=== PATIENT | female | born 2000 | race Two or more races ===

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

== ENCOUNTER 2021-04-21 17:54 | Emergency (ER) | payer MEDICAID ==
[~2021-04-21] VITALS: Ht 170.2 cm; Wt 95.3 kg
[2021-04-21 17:55] VITALS: BP 130/74
== END 2021-04-22 00:30 | disposition left against medical advice (07) ==
LOC: ER 17:54
DX: M54.2 Cervicalgia (principal); Z53.21 Procedure and treatment not carried out due to patient leaving prior to being seen by health care provider